=== PATIENT | male | born 1970 | race Caucasian/White ===

== ENCOUNTER 2020-10-04 16:05 | Emergency (ER) | payer MEDICAID ==
[~2020-10-04] VITALS: Ht 190.5 cm; Wt 83.9 kg
[2020-10-04 16:13] VITALS: BP_SYST 133
[2020-10-04 16:57] LABS: BASOPHILS # (AUTO) 0.1 K/uL (0.0-0.2); BASOPHILS % (AUTO) 0.7 % (0.0-2.0); EOSINOPHILS # (AUTO) 0.3 K/uL (0.0-0.4); HEMATOCRIT 39.5 % (36-54); HEMOGLOBIN 13.4 g/dL (14.0-18.0); LYMPHOCYTES # (AUTO) 1.7 K/uL (1.0-5.5); LYMPHOCYTES % (AUTO) 13.5 % (20.5-51.5); MEAN CORPUSCULAR HEMOGLOBIN 31 pg (27-31); MEAN CORPUSCULAR HGB CONC 34 % (32-36); MEAN CORPUSCULAR VOLUME 91 fL (79.0-98.0); MONOCYTES # (AUTO) 1.1 K/uL (0.0-1.0); MONOCYTES % (AUTO) 8.9 % (1.7-9.3); NEUTROPHILS # (AUTO) 9.6 K/uL (1.8-7.7); NEUTROPHILS % (AUTO) 74.9 % (40.0-70.0); PLATELET COUNT (AUTO) 208 K/uL (130-430); RED BLOOD CELL COUNT(AUTO) 4.34 MIL/uL (4.2-6.2); RED CELL DISTRIBUTION WIDTH 13.4 % (9.0-15.0); WHITE BLOOD COUNT (AUTO) 12.8 K/uL (4.8-10.8)
[2020-10-04 17:00] LABS: CALCIUM 8.2 mg/dL (8.4-11.0); CREATININE 0.89 mg/dL (0.55-1.30); POTASSIUM 4.2 mmol/L (3.5-5.1)
[2020-10-04] MEDS ORDERED: BACITRACIN 1 GM OINT TP ONE (17:00)
[2020-10-04] MEDS ORDERED: LIDOCAINE 1% 10 MG/ML, 20 ML MDV INJ ONE (17:00)
[2020-10-04] MEDS ORDERED: KETOROLAC TROMETHAMINE 60 MG/2 ML VIAL IM ONE (17:00)
[2020-10-04] MEDS ORDERED: DIPH-TET-PERTUS Vaccine 0.5 ML VIAL (ADACEL) I.M. ONE (17:00)
[2020-10-04 17:04] LABS: C-REACTIVE PROTEIN QUANT 4.6 mg/dL (0-0.5)
[2020-10-04] MEDS ORDERED: LIDOCAINE 1%, 20 ML MDV 20 ML ONE (17:04)
[2020-10-04 17:13] LABS: INR 0.9 (0.80-1.20); PROTHROMBIN TIME 9.7 SECS (9.5-12.5)
[2020-10-04 17:15] LABS: ALBUMIN 3.3 g/dL (3.4-4.8); TOTAL BILIRUBIN 0.4 mg/dL (0.0-1.0)
[2020-10-04] MEDS ORDERED: HYDR-3919 PO (17:42)
[2020-10-04] MEDS ORDERED: CLIN300C12 PO (17:42)
[2020-10-04 17:56] VITALS: BP_SYST 112
== END 2020-10-04 17:58 | disposition home or self-care (01) ==
LOC: SED 16:05
DX: L02.214 Cutaneous abscess of groin (principal); J45.909 Unspecified asthma, uncomplicated; Z79.899 Other long term (current) drug therapy
CPT/HCPCS: 10060; 36415; 80053; 83605; 85025; 85610; 85730; 86140; 96372; 99283; J1885; J2001

== ENCOUNTER 2020-10-06 12:33 | Emergency (ER) | payer MEDICAID ==
[~2020-10-06] VITALS: Ht 190.5 cm; Wt 83.9 kg
[~2020-10-06 12:33] MED LIST: CLIN300C12 PO; HYDR-3919 PO
[2020-10-06 13:10] VITALS: BP_SYST 133
[2020-10-06 16:11] VITALS: BP_SYST 133
== END 2020-10-06 16:11 | disposition home or self-care (01) ==
LOC: SED 12:33
DX: L02.211 Cutaneous abscess of abdominal wall (principal); F17.200 Nicotine dependence, unspecified, uncomplicated; F12.90 Cannabis use, unspecified, uncomplicated
CPT/HCPCS: 99282

== ENCOUNTER 2020-12-14 11:46 | Emergency (ER) | payer MEDICAID ==
[~2020-12-14] VITALS: Ht 190.5 cm; Wt 86.2 kg
[2020-12-14 11:59] VITALS: BP_SYST 131
--- NOTE | 2020-12-14 12:08 | NUR ---
Patient triaged and placed in waiting room. VSS and patient appears in no acute distress at this time. Accompanied by self , awaiting available bed, and MD notified of need for MSE.
== END 2020-12-14 16:00 | disposition left against medical advice (07) ==
LOC: SED 11:46
DX: M79.605 Pain in left leg (principal); Z53.21 Procedure and treatment not carried out due to patient leaving prior to being seen by health care provider

== ENCOUNTER 2023-02-03 13:11 | Emergency (ER) | payer MEDICAID ==
[~2023-02-03] VITALS: Ht 190.5 cm; Wt 81.6 kg
[2023-02-03 13:11] VITALS: BP_SYST 126; PULSE 102; RESP 14; TEMP 97.4; O2SAT 95
[~2023-02-03 13:11] MED LIST changes: +CLIN-142 PO; -CLIN300C12 PO
== END 2023-02-03 13:33 ==
LOC: SED 13:11
DX: Z02.89 Encounter for other administrative examinations (principal); G89.29 Other chronic pain; M54.50 Low back pain, unspecified; J45.909 Unspecified asthma, uncomplicated; F17.200 Nicotine dependence, unspecified, uncomplicated; Z79.899 Other long term (current) drug therapy
CPT/HCPCS: 82962; 99283